=== PATIENT | female | born 2005 | race Caucasian/White ===

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

== ENCOUNTER 2025-01-21 17:31 | Emergency (ER) | payer MEDICAID, SELFPAY ==
[2025-01-21 17:54] VITALS: BP 137/79; PULSE 74; RESP 18; TEMP 36.4; O2SAT 100; BMI 46.2
--- NOTE | 2025-01-21 17:54 | ED.GENADULT ---
HPI - General Adult General Chief complaint: Urogenital-Female Stated complaint: Menstrual Cycle Issues Time Seen by Provider: 01/21/25 21:45 Source: patient Limitations: no limitations History of Present Illness ED Provider: Valencia Cabrera PA-C HPI narrative: 19-year-old female who is morbidly obese, presents with irregular cycles since menarche. In addition patient develops heavy bleeding with the cramps at times. Patient has not followed up with a oracle hyperion consultant, she is not currently on control. Related Data Previous Rx's ?Medication ?Instructions ?Recorded clindamycin HCl 300 mg capsule 300 mg PO Q6H 7 days #28 caps 04/27/20 mupirocin 2 % topical ointment 1 appl topical TID 5 days #15 grams 04/27/20 doxycycline monohydrate 100 mg 100 mg PO BID 10 days #20 tabs 08/29/20 tablet doxycycline monohydrate 100 mg 100 mg PO BID #20 caps 08/30/20 capsule ketorolac 10 mg tablet 10 mg PO Q6H PRN pain #20 tabs 01/21/25 medroxyprogesterone 10 mg tablet 10 mg PO DAILY #10 tabs 01/21/25 (Provera) Allergies Allergy/AdvReac Type Severity Reaction Status Date / Time seafood Allergy Hives Verified 01/21/25 17:56 Review of Systems Review of Systems: Yes all other systems are reviewed and are negative Constitutional: Constitutional: Denies fatigue and Denies fever(s) Cardiovascular: Cardiovascular: Denies chest pain and Denies dyspnea Respiratory: Respiratory: Denies dyspnea Gastrointestinal: Gastrointestinal: Denies abdominal pain, Denies nausea and Denies vomiting Genitourinary: Genitourinary: Reports abnormal vaginal bleeding, Reports menorrhagia and Reports pelvic pain Endocrine: Endocrine: Denies fatigue [facility] Past Medical History Attestation statement: The following information was validated with the patient. Medical History Asthma Social History Social History Advance Directives: No Advance Directives Information Provided: Yes Physical Exam ED Vital Signs: Vital Signs - 24 hr 01/21/25 17:54 01/21/25 21:40 01/21/25 21:52 Temperature 97.6 F 98.2 F 97.6 F Pulse Rate 74 73 84 Respiratory Rate 18 20 14 Blood Pressure 137/79 137/95 H 119/70 Pulse Oximetry 100 97 100 Oxygen Delivery Method Room Air Room Air Room Air BMI result Body Mass Index 46.2 Const Other: Alert Orientation/consciousness: patient oriented x3 Resp Effort & Inspection: normal respiratory effort Cardio Other: normal peripheral perfusion Other: deferred Skin Other: warm dry no rash Neuro General: patient oriented x3, gait normal, no focal motor deficits and CN's II-XI intact bilaterally Psych Other: cooperative Course Course Course Narrative: Rapid medical examination performed in triage by Alba Carmona PA-C: Patient is a 19 year old female presenting to the emergency department with irregular periods. Detailed physical exam and review of systems are deferred to the casing worker. Labs ordered. Patient placed back in the waiting room pending room availability and results. Medical Decision Making Medical Decision Making MDM Narrative: 19-year-old female who is morbidly obese, presents with irregular cycles since menarche. In addition patient develops heavy bleeding with the cramps at times. Patient has not followed up with a oracle hyperion consultant, she is not currently on control. problem: Irregular cycles, morbidly obese History: Per patient I have considered the following differential diagnoses: Abnormal uterine bleeding, fibroid, PCOS, hypercoagulable state plan: Patient has chronic irregular cycles with a heavy bleeding at times. has had symptoms for years per her report. Screening labs were obtained from triage, she is not , her H&H are stable, there was no indication for a pelvic exam. She needs an outpatient workup. She is morbidly obese and has thrombocytosis, she is prone to forming clot, I am not initiating a formal oral contraceptive at this time. I am providing her with a contact for tapestry. I will start her on Provera for 10 days as a temporizing measure, and give Toradol. I have independently reviewed the following tests: Labs: No leukocytosis, not anemic, thrombocytosis noted, no electrolyte abnormality, not Differential Diagnosis Differential Diagnoses: The differential diagnosis associated with the presentation includes see [facility] Admission/Observation Consideration of admission/observation: Escalation of care including admission/observation considered not applicable Lab Data [facility] Lab Attestation statement: I reviewed the patient's lab results. 01/21/25 18:14 01/21/25 18:14 Labs: Lab Results 01/21/25 Range/Units 18:14 WBC 8.4 (4.8-10.8) X10*3/uL RBC 5.67 H (4.20-5.50) X10*6/uL Hgb 13.2 (12.0-16.0) g/dl Hct 42.1 (37.0-47.0) % MCV 74.3 L (80.0-98.0) fL MCH 23.3 L (27.0-33.0) pg MCHC 31.4 (31.0-35.0) g/dl RDW 16.2 H (11.0-16.0) % Plt Count 406 H (160-400) X10*3/uL MPV 8.4 L (9.4-12.3) fL Immature Gran % (Auto) 0.2 (0.0-0.4) % Neut % (Auto) 64.8 (45-73) % Lymph % (Auto) 26.8 (20-40) % [place] % (Auto) 6.6 (2-11) % Eos % (Auto) 1.2 (0-4) % Baso % (Auto) 0.4 (0-2) % Lymph # (Auto) 2.2 (1.2-4.9) X10*3/uL [place] # (Auto) 0.6 (0.1-1.2) X10*3/uL Eos # (Auto) 0.1 (0.0-0.4) X10*3/uL Baso # (Auto) 0.0 (0.0-0.2) X10*3/uL Abs Immat Gran (auto) 0.02 (0.00-0.03) X10*3/uL Absolute Neuts (auto) 5.4 (2.0-8.3) x10*3/uL Absolute Nucleated RBC 0.000 (0.0-0.012) X10*3/uL Nucleated RBC % (auto) 0.0 (0.0-0.2) /100WBC Sodium 140 (135-145) mmol/L Potassium 4.1 (3.3-5.1) mmol/L Chloride 110 H (96-108) mmol/L Carbon Dioxide 24 (22-29) mmol/L Anion Gap 10 L (12-20) BUN 9 (9-16) mg/dL Creatinine 0.60 (0.5-1.4) mg/dL Estim Creat Clear Calc 164.3 Estimated GFR > 60 Random Glucose 79 (60-115) mg/dL Calcium 9.2 (8.4-10.2) mg/dL Magnesium 1.9 (1.6-2.6) mg/dL Total Bilirubin 0.3 (0.0-1.0) mg/dL AST 33 H (5-31) U/L ALT 40 H (0-31) U/L Alkaline Phosphatase 120 H (39-117) U/L Total Protein 7.6 (6.5-8.0) g/dL Albumin 4.2 (3.5-5.0) g/dL TSH 0.77 (0.32-4.0) uIU/mL Beta HCG, Quant < 2 mIU/mL Discharge Plan Discharge Clinical Impression: Bleeding, uterine, dysfunctional Patient Disposition: Home, Self-Care Instructions: Abnormal (Dysfunctional) Uterine Bleeding (ED) Additional Instructions: all of your screening labs were normal, you were not . You need to follow up with a oracle hyperion consultant to initiate control. You do have some risk factors to potentially form of blood clot, it would not be safe to start you on a control here in the emergency room, You need to healthcare provider to track and monitor your progress. In the meantime, I am starting you on progesterone alone, it is called Provera. Take it daily. Also use the ketorolac, this will help with the cramping in the bleeding. Take this medication with food. I am providing you with a contact for [facility]. Call tomorrow to schedule an appointment. Prescriptions: New medroxyprogesterone [Provera] 10 mg tablet 10 mg PO DAILY Qty: 10 0RF ketorolac 10 mg tablet 10 mg PO Q6H PRN (Reason: pain) Qty: 20 0RF Rx Instructions: maximum total duration of 5 days from all oral, intranasal, or parenteral formulations, Patient received an intramuscular dose of Toradol here in the emergency room No Action mupirocin 2 % ointment 1 appl topical TID 5 Days Qty: 15 0RF clindamycin HCl 300 mg capsule 300 mg PO Q6H 7 Days Qty: 28 0RF doxycycline monohydrate 100 mg capsule 100 mg PO BID Qty: 20 0RF doxycycline monohydrate 100 mg tablet 100 mg PO BID 10 Days Qty: 20 0RF Referrals: [facility] [Provider Group] Referral Note: dysfunctional uterine bleeding, requires some form of control, maybe additional intervention, she has a risk factors to be hypercoagulable Print Language: Bahraini
[2025-01-21 18:19] LABS: MANUAL DIFF FLAG NO
[2025-01-21 18:22] LABS: Hematocrit 42.1 % (37.0-47.0); Hemoglobin 13.2 g/dl (12.0-16.0); Imm Gran Abs Auto 0.02 X10*3/uL (0.00-0.03); Imm Gran Pct Auto 0.2 % (0.0-0.4); Lymphocytes Absolute Auto 2.2 X10*3/uL (1.2-4.9); Mean Corpuscular HGB Conc 31.4 g/dl (31.0-35.0); Mean Corpuscular Hemoglobin 23.3 pg (27.0-33.0); Mean Corpuscular Volume 74.3 fL (80.0-98.0); NRBC Abs Auto 0.000 X10*3/uL (0.0-0.012); NRBC Pct Auto 0.0 /100WBC (0.0-0.2); Platelet Count 406 X10*3/uL (160-400); Red Blood Count 5.67 X10*6/uL (4.20-5.50); White Blood Count 8.4 X10*3/uL (4.8-10.8)
[2025-01-21 18:47] LABS: Alanine Aminotransferase 40 U/L (0-31); Albumin Level 4.2 g/dL (3.5-5.0); Alkaline Phosphatase 120 U/L (39-117); Anion Gap 10 (12-20); Aspartate Amino Transferase 33 U/L (5-31); Blood Urea Nitrogen 9 mg/dL (9-16); Calcium 9.2 mg/dL (8.4-10.2); Carbon Dioxide 24 mmol/L (22-29); Chloride 110 mmol/L (96-108); Creatinine Clr Calc Pharmacy 164.3; Estimated Glomerular Filt Rate > 60; Magnesium 1.9 mg/dL (1.6-2.6); Potassium 4.1 mmol/L (3.3-5.1); Sodium 140 mmol/L (135-145); Total Protein 7.6 g/dL (6.5-8.0)
[2025-01-21 21:40] VITALS: BP 137/95; PULSE 73; RESP 20; TEMP 36.8; O2SAT 97
[2025-01-21 21:52] VITALS: BP 119/70; PULSE 84; RESP 14; TEMP 36.4; O2SAT 100
[2025-01-21 22:53] VITALS: BP 118/66; PULSE 76; RESP 18; O2SAT 99
--- OUTSIDE RECORDS SUMMARY | 2025-01-21 22:55 | XMS_ITS | Clinical Summary ---
Author Organization [facility] Address [address] [place] [address] Phone Care Team Providers Care Aircraft Stress Analyst Name Role Phone Physician, No Pcp Primary Care Provider Unavaila ble Allergies Active Allergy Reactions Criticality Noted Date Comments Shellfish Containing Products Anaphylaxis,Swelling High 02/16/2008 Medications methocarbamoL (ROBAXIN) 500 mg tablet Take 1 tablet (500 mg total) by mouth 2 (two) times a day for 10 days. 20 tablet 5 Active naproxen (NAPROSYN) 500 mg tablet Take 1 tablet (500 mg total) by mouth 2 (two) times a day with meals for 15 days. 30 tablet 5 01/01/20 25 lidocaine 4 % patch Apply 1 patch topically 1 (one) time each day. 30 each 5 01/16/20 25 Encounters Date Type Department Care Team Description 12/16/2024 2:08 AM EST - 12/16/2024 2:17 AM EST Emergency [facility] Emergency [address] [place] [address] Acute bilateral low back pain without sciatica (Primary Dx) Discharge Disposition: Home or Self Care from Last 3 Months Surgical History Surgery Date Site/Laterality Comments OTHER SURGICAL HISTORY PROCEDURE: DENIES PREVIOUS SURGERY Medical History Medical History Date Comments Asthma DX:Asthma; COMME NT: Hx. 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 to seafood; COMMENT: throat swelling Expressive language disorder 09/02/2008 DX: Expressive language disorder Moderate or severe vision im pairment, both eyes, impairment level not further specified 09/02/2008 DX:Moderate or severe vision impairment, both eyes, impairment level not further specified Asthma, moderate persistent, well-controlled 09/02/2008 DX:Asthma, moderate persiste nt, well-controlled Childhood obesity 09/02/2008 DX:Childhood o besity Constipation 09/02/2008 DX:Constipation Family History Medical History Relation Name Comments Asthma Brother 1 James Alberto Asthma Brother 2 Dave toledo Other: pervasive devel Brother 3 Asthma Father Heart attack Father age 41 Heart attack Maternal Grandmother Other: seizures Maternal Grandmother m co usin also Asthma Mother Ca thyroid 2-10 surgery Other: gastric by pass Mother Heart attack Paternal Grandmother Relation Name Status Comments Brother 1 Brother 2 Brother 3 Brother 4 Alive james alberto Father Alive Maternal Grandmother Mother Alive Ca thyroid 2-10 surgery, bethzadia alberto Paternal Grandmother Social History Tobacco Use Types Packs/Day Years Used Date Smoking Tobacco: Some Days Cigarettes Tobacco Cessation:Ready to Q uit: Not Asked; Counseling Given: Not Answered Alcohol Use Standard Drinks/Week Comments Not Currently 0 (1 standard drink = 0.6 oz pur e alcohol) Comments Unknown Sex and Gender Information Value Date Recorded Sex Assigned at Not on file Legal Sex Female 11:19 PM EST Gender Identity Not on file Sexual Orientation Not on file Last Filed Vital Signs Vital Sign Reading Time Taken Comments Blood Pressure 94/58 12/15/2024 10:14 PM EST Pulse 96 12/15/2024 10:14 PM EST Temperature 36.9 C (98.4 F) 12/15/2024 10:14 PM EST Respiratory Rate 16 12/15/2024 10:14 PM EST Oxygen Saturation 100% 12/15/2024 10:14 PM EST Inhaled Oxygen Concentration - - Weight 113 kg (250 lb) 12/15/2024 10:14 PM EST Height 152.4 cm (5') 12/15/2024 10:14 PM EST Body Mass Index 48.82 12/15/2024 10:14 PM EST Plan of Treatment Health Maintenance Due Date Last Done Comments Gonorrhea/Chlamydia Screening 2003 Pneumococcal Vaccine: Pediatrics (0 to 5 Years) and At-Risk Patients (6 to 49 Years) (1 of 1 - PPSV23, PCV20, or PCV21) 04/12/2009 10/19/2004, 2003, 2003, Additional history exists HPV Vaccines (1 - 3-dose series) 04/12/2018 Hepatitis A Vaccines (2 of 2 - 2-dose series) 04/19/2021 10/20/2020 Meningococcal B Vaccine (2 of 2 - [place] SCDM 2-dose series) 04/19/2021 10/20/2020 Annual Well Child Visit (3-21 years old) 01/10/2022 03/20/2015, 06/26/2013, 01/19/2012, Additional history exists Cholesterol Screening (Lipid Panel) 01/10/2022 HIV Screening 01/10/2022 Hepatitis C Screening 01/10/2022 Social Influencers of Health Screening 01/10/2022 Depression Screening 02/08/2024 Cervical Cancer Screening: Pap Smear 04/12/2024 COVID-19 Vaccine ( season) 2024 09/24/2020, 08/12/2020 Influenza Vaccine (#1) 2024 , 12/28/2021, 01/18/2011, Additional history exists DTaP,Tdap,and Td Vaccines (7 - Td or Tdap) 03/20/2025 03/20/2015, 09/02/2008, 10/19/2004, Additional history exists RSV Immunization Adult Patients (1 - 1-dose 75+ series) 04/12/2078 Hepatitis B Vaccines Completed 01/27/2004, 2003, 2003 HIB Vaccines Completed 10/19/2004, 10/08, 2003, Additional history exists IPV Vaccines Completed 09/02/2008, 10/08, 01/27/2004, Additional history exists MMR Vaccines Completed 09/02/2008, 04/27/2004 Varicella Vaccines Completed 09/02/2008, 04/27/2004 Meningococcal ACWY Vaccine Completed 10/20/2020, RSV Immunization Patients Under 20 months Aged Out No longer eligible based on patient's age to complete this topic Procedures Procedure Name Priority Date/Time Associated Diagnosis Comments XR LUMBAR SPINE 2-3 VIEWS STAT 12/16/2024 1:34 AM EST POC , URINE DIAGNOSTIC STAT 12/16/2024 1:12 AM EST from Last 3 Months Results * XR Lumbar Spine 2-3 Views (12/16/2024 1:34 AM EST) Anatomical Region Laterality Modality Spine, L-spine Radiographic Jamilah ging 12/16/2024 9:47 AM EST Impressions 12/16/2024 9:48 AM EST FINDINGS/IMPRESSION: Degenerative changes of the lumbar spine. No acute fracture or traumatic malalignment. -------- FINAL REPORT -------- Dictated By: Carroll Rondon Dictated Date: 12/16/2024 09:47 ET Assigned Physician: Carroll Rondon Reviewed and Electronically Signed By: Carroll Rondon Signed Date: 12/16/2024 09:48 ET Workstation ID: [id number] Transcribed By: Self Edit Transcribed Date: 12/16/2024 09:47 ET Narrative 12/16/2024 9:48 AM EST XR LUMBAR SPINE 2-3 VIEWS INDICATION: low back pain TECHNIQUE: XR LUMBAR SPINE 2-3 VIEWS COMPARISON: None Procedure Note Carroll Rondon MD - 12/16/2024 XR LUMBAR SPINE 2-3 VIEWS INDICATION: low back pain TECHNIQUE: XR LUMBAR SPINE 2-3 VIEWS COMPARISON: None IMPRESSION: FINDINGS/IMPRESSION: Degenerative changes of the lumbar spine. No acutefracture or traumatic malalignment. -------- FINAL REPORT -------- Dictated By: Carroll Rondon Dictated Date: 12/16/2024 09:47 ET Assigned Physician: Carroll Rondon Reviewed and Electronically Signed By: Carroll Rondon Signed Date: 12/16/2024 09:48 ET Workstation ID: [id number] Transcribed By: Self Edit Transcribed Date: 12/16/2024 09:47 ET [facility] IMG XR PROCEDURES Final Result * POC , urine manually resulted (12/16/2024 1:12 AM EST) HCG, Ur POC Negative Negative POC hCG Int QC Pass? Yes Yes EXPIRATION DATE POC 07/03/26 LOT NUMBER POC [id number] Urine Urine specimen obtained by clean catch procedure / Unknown 12/16/2024 1:12 AM EST us [facility] POINT OF CARE TEST ENTER/EDIT ORDERABLES Final Result from Last 3 Months Care Teams Aircraft Stress Analyst Relationship Specialty Start Date End Date Physician, No Pcp PCP - General 12/16/24
[2025-01-21 23:04] VITALS: BP 118/66; PULSE 76; RESP 18; TEMP 36.4; O2SAT 99
== END 2025-01-21 23:04 | disposition home or self-care (01) ==
PROVIDERS: Physician Assistant Medical; Emergency Provider Emergency Medicine
DX: N93.8 Other specified abnormal uterine and vaginal bleeding (principal); Z79.899 Other long term (current) drug therapy
CPT/HCPCS: 36415; 80053; 83735; 84443; 84702; 85025; 96372; 99284; J1885